=== PATIENT | female | born 1995 | race African-American/Black ===

== ENCOUNTER 2018-04-06 01:24 | Emergency (ER) | payer OTHER ==
--- NOTE | 2018-04-06 01:27 | ER Report ---
History and Physical Time Seen By MD: 01:25 HPI/ROS CHIEF COMPLAINT: knee injury HISTORY OF PRESENT ILLNESS: This is a 23 year old female. She was working tonight, shoveling. Twisted, and her left knee gave way. Pain on medial side. Pain worsens with trying to walk or bear weigh. Has a prior injury to the knee. Was evaluated and put in a brace, but no further follow-up. It seems like the patient has had episodes where it may have felt unstable, but she is uncertain of this. Has normal sensation in the leg. Pain worsens with range of motion. Allergies: Uncoded Allergies: laughing gas (Allergy, Unknown, 04/06/18) Home Meds Active Scripts Hydrocodone Bit/Acetaminophen (HYDROCODON-ACETAMINOPHEN 5-325) 1 Each Tablet, 1 EACH PO Q4H Y for PAIN, #10 TAB 0 Refills Prov:MU KAHN MD 04/06/18 Reviewed Nurses Notes: Yes Constitutional Vital Sign - Last 24 Hours 04/06/18 04/06/18 04/06/18 04/06/18 01:24 01:26 01:26 01:30 Temp 98.2 Pulse 76 Resp 16 B/P (MAP) 123/80 (94) 120/80 (93) 123/80 121/74 (90) Pulse Ox 95 92 O2 Delivery Room Air 04/06/18 04/06/18 04/06/18 04/06/18 01:50 02:00 02:05 02:10 Pulse 77 72 B/P (MAP) 109/71 (84) Pulse Ox 95 94 98 04/06/18 04/06/18 02:25 02:30 Pulse 67 B/P (MAP) 100/82 (88) Pulse Ox 95 Physical Exam General appearance: Alert no distress. Musculoskeletal: Left knee shows no significant swelling. There is no effusion. There is no obvious deformity of the knee. Patella had no pain. Medial jointline is tender to palpation. Lateral jointline is non-tender to palpation. Bri is negative. The joint is stable with no comparable ligamentous laxity to the knee, but with significant guarding. Pain worse with active, but also present with passive, range of motion. Neurologic: The patient has normal sensation distal to the injury. Cardiovascular: Normal pulses and capillary refill in the foot Skin: No rashes. No skin breakdown. DIFFERENTIAL DIAGNOSIS: After history and physical exam differential diagnosis was considered for knee injury including sprain, fracture, meniscus injury and soft tissue injury. Medical Decision Making EKG/Imaging Imaging KNEE 4 VIEW LEFT COMPARISONS: None. ADDITIONAL PERTINENT HISTORY: Knee injury FINDINGS: Osseous structures: Negative. Joint spaces: Negative. Surrounding soft tissues: Negative. IMPRESSION: Normal views of the left knee. Report Dictated By: Den Collier MD at 04/06/2018 2:01 AM ED Course/Re-evaluation ED Course The patient had negative x-rays, discussed these results with here. Suspect ligamentous or meniscus injury. Recommended knee immobilizer and crutches with follow-up with orthopedic surgery for re-evaluation. Off work until this is done. Decision to Disposition Date: Apr 06, 2018 Decision to Disposition Time: 02:40 Depart Departure Latest Vital Signs Vital Signs Date Time Temp Pulse Resp B/P (MAP) Pulse Ox O2 Delivery O2 Flow Rate FiO2 04/06/18 02:30 100/82 (88) 04/06/18 02:25 67 95 04/06/18 01:26 98.2 16 Room Air Impression: Primary Impression: Knee injury Condition: Improved Disposition: HOME OR SELF-CARE New Scripts Hydrocodone Bit/Acetaminophen (HYDROCODON-ACETAMINOPHEN 5-325) 1 Each Tablet 1 EACH PO Q4H Y for PAIN, #10 TAB 0 Refills Prov: MU KAHN MD 04/06/18 Patient Instructions: Knee Immobilizer (DC), Knee Sprain (ED) Additional Instructions: Ibuprofen 200mg over the counter tablets, take 4 tablets three times a day with food. Lortab 5/325, one every 4 hours as needed for pain. Apply ice 20 minutes every 1-2 hours while awake. Knee immobilizer in place and no weightbearing until seen by orthopedic surgery Please call [facility] on Sunday morning to arrange a follow up with orthopedic surgery. Keep the injured area elevated at rest. Off work until released by orthopedic surgery. Problem Qualifiers Primary Impression: Knee injury Encounter type: initial encounter Laterality: left Qualified Codes: S89.92XA - Unspecified injury of left lower leg, initial encounter MU KAHN MD Apr 06, 2018 01:27
--- NOTE | 2018-04-06 02:05 | RADIOLOGY IMAGING REPORT ---
FACILITY: [facility] - [place] PATIENT NAME: Gayla Chisholm : 1995 MR: [id number] V: [id number] EXAM DATE: ORDERING PHYSICIAN: MU KAHN TECHNOLOGIST: [place] [facility] [place]la Chisholm : 1995 Visit/Account:[id number] Date of Sevice: 04/06/2018 KNEE 4 VIEW LEFT COMPARISONS: None. ADDITIONAL PERTINENT HISTORY: Knee injury FINDINGS: Osseous structures: Negative. Joint spaces: Negative. Surrounding soft tissues: Negative. IMPRESSION: Normal views of the left knee. Report Dictated By: Den Collier MD at 04/06/2018 2:01 AM Report E-Signed By: Den Collier MD at 04/06/2018 2:01 AM WSN:[id number]
[2018-04-06 02:30] VITALS: BP 100/82
[2018-04-06] MEDS ORDERED: LOR5/325 PO (02:42)
[2018-04-06] MEDS ORDERED: ACET/HYDROC 5/325MG TH ER ONLY 2 TAB/BOTTLE PO ONE (02:45)
== END 2018-04-06 02:59 | disposition home or self-care (01) ==
LOC: ER 01:35
DX: S89.92XA Unspecified injury of left lower leg, initial encounter (principal); X50.1XXA Overexertion from prolonged static or awkward postures, initial encounter
CPT/HCPCS: 73564; 99283; L1830

== ENCOUNTER → 2018-04-06 | Outpatient (CLI) | payer OTHER ==
[~2018-04-06] MED LIST: LOR5/325 PO
== END ==
LOC: AMB 00:18
PROVIDERS: ATTEND Nurse Practitioner
DX: M25.562 Pain in left knee (principal); Y93.H1 Activity, digging, shoveling and raking; Y92.64 Mine or pit as the place of occurrence of the external cause
CPT/HCPCS: A0425; A0427